=== PATIENT | male | born 1970 | race Hispanic/Latino ===

== ENCOUNTER 2020-04-30 10:45 | Emergency (ER) | payer SELFPAY ==
--- NOTE | 2020-04-30 12:11 | RAD ---
EXAM: Single view of the chest HISTORY: Covid positive with cough and headache COMPARISON: None FINDINGS: Single view of the chest shows a normal sized cardiomediastinal silhouette. There are multi focal infiltrates in the right upper lobe and bilateral lower lobes. No pleural effusion is seen. No acute osseous abnormality. IMPRESSION: Multifocal pneumonia
[2020-04-30] MEDS ORDERED: Acetaminophen 500 MG TAB ONE (12:46)
== END 2020-04-30 12:45 | disposition home or self-care (01) ==
LOC: ERS 10:45
DX: U07.1 COVID-19 (principal); E11.9 Type 2 diabetes mellitus without complications; Z79.4 Long term (current) use of insulin
CPT/HCPCS: 71045

== ENCOUNTER 2020-05-04 13:43 | Emergency (ER) | payer SELFPAY | END 2020-05-04 15:00 | disposition home or self-care (01) | LOC: ERS 13:43 | DX: U07.1 COVID-19 (principal); E11.9 Type 2 diabetes mellitus without complications; Z79.4 Long term (current) use of insulin | CPT/HCPCS: 99283 ==